=== PATIENT | female | born 2000 | race Caucasian/White ===

== ENCOUNTER 2023-12-31 15:19 | Emergency (ER) | payer OTHER, BC, SELFPAY ==
--- NOTE | ~2023-12-31 | CT_ITS ---
EXAMINATION: CT HEAD WITHOUT CONTRAST CLINICAL INFORMATION: Hit in head with field hockey-stick. COMPARISON: None. TECHNIQUE: Contiguous axial imaging was performed from the skullbase to vertex without intravenous administration of contrast. This CT examination was performed using dose optimization techniques as appropriate, variously including the following: *Automated exposure control *Adjustment of mA and/or kV according to patient size (this includes techniques or standardized protocols for targeted exams where dose is matched to indication/reason for exam; i.e. extremities or head) *Use of iterative reconstruction technique DLP: 577 mGy-cm. FINDINGS: There is no evidence of acute intracranial hemorrhage or territorial infarction. No abnormal mass effect or midline shift is seen. Monge to white matter differentiation is well preserved. No extra-axial fluid collections are identified. The ventricles are normal in size. There is no abnormal attenuation within the brain parenchyma. The osseous structures and soft tissues are normal. The mastoid air cells and visualized portions of the paranasal sinuses are well aerated. CT/CT head/brain wo IV con IMPRESSION: No acute intracranial pathology. Electronically signed by: López Driscoll MD 12/31/2023 04:52 PM EDT
[2023-12-31 15:34] VITALS: BP 109/68; BP 110/72; PULSE 61; PULSE 86; RESP 16; TEMP 37.2; O2SAT 99; BMI 27.4
--- NOTE | 2023-12-31 15:49 | ED.HEATRA ---
HPI - Head Injury General Chief complaint: Trauma Stated complaint: FEILD HOCKEY STICK TO FACE PER EMS Time Seen by Provider: 12/31/23 15:28 Source: patient, family, EMS, RN notes reviewed and old records reviewed Mode of arrival: EMS History of Present Illness ED Provider: Catrina Price PA-C HPI Narrative: 23-year-old female with no significant past medical history presenting to ED via EMS complaining of facial laceration and head injury s/p being struck with field hockey stick [employer]. [facility] stick, denies LOC, nausea/vomiting. Denies falling all the way to ground. Admits initially groggy with photosensitivity which is improving. Denies vision change/loss, nausea/vomiting, neck/back pain, numbness, tingling, weakness. Vaccinations up-to-date Related Data Allergies Allergy/AdvReac Type Severity Reaction Status Date / Time No Known Allergies Allergy Verified 12/31/23 15:36 Review of Systems Review of Systems: Yes all other systems are reviewed and are negative Constitutional: Constitutional: Reports as per HPI Neurologic: Denies Abnormal speech present [facility] Past Medical History Attestation statement: The following information was validated with the patient. Source: old records reviewed Social History Social History Advance Directives: No Advance Directives Information Provided: No Do you have a plan to hurt others: No Plan Physical Exam Vital Signs: Vital Signs: Last Vital Signs Temp 97.6 F 12/31/23 17:11 Pulse 52 12/31/23 17:11 Resp 16 12/31/23 17:11 BP 111/69 12/31/23 17:11 Pulse Ox 98 12/31/23 17:11 O2 Del Method Room Air 12/31/23 17:11 BMI result Body Mass Index 27.4 Const: General: cooperative, healthy appearing and no acute distress Orientation/consciousness: patient oriented x3 Limitations: no limitations HEENT: Other: + 2 cm laceration noted to right forehead/eyebrow. Bleeding controlled. EOMs intact without entrapment or pain. No palpable step-off Head: Yes normal to inspection and Yes atraumatic Ears: hearing grossly normal bilaterally General nose exam: Normal external nose present Face and sinus: Yes normal facial exam Throat: Yes posterior oropharynx normal and Yes uvula midline Eyes: General: appearance normal, both eyes and all related structures Pupils: Equal, round and reactive pupils present EOM: EOMs intact bilaterally Neck: Neck: Yes normal visual inspection and Yes no meningeal signs Resp: Effort & Inspection: normal respiratory effort and no respiratory distress Cardio: Rate: regular rate GI: Inspection: Yes normal to inspection Palpation (GI): Soft to palpation, nontender, no guarding and not rigid Back/Spine/Pelvis: Other: No midline cervical/thoracic/lumbar spinous tenderness/step-off or deformity Skin: Rashes: no rashes Neuro: General: patient oriented x3, tone normal, moves all extremities, no meningeal signs, no focal motor deficits and CN's II-XI intact bilaterally Cranial nerves: Yes CN's II-XII intact bilaterally, Yes Equal, round and reactive pupils present and Yes Bilaterally intact EOM present Cognition (Neuro): normal cognition Speech: No Abnormal speech present Motor exam (neuro): 5/5 motor strength present throughout and no tremor noted Extrem: General: Yes normal to inspection Course Course Course Narrative: CT head/brain wo IV con IMPRESSION: No acute intracranial pathology. Results discussed with patient including worrisome signs and symptoms and strict return precautions, and when to return to the emergency department. They verbalized understanding and feel safe for discharge at this time. Medications Administered Discontinued Medications Generic Name Dose Route Start Last Admin Trade Name Freq PRN Reason Stop Dose Admin Acetaminophen 975 mg 12/31/23 15:46 12/31/23 16:09 Acetaminophen 325 Mg Tablet PO 12/31/23 15:47 975 mg ONCE ONE Administration Lidocaine HCl 5 ml 12/31/23 15:46 12/31/23 15:55 Lidocaine Hcl 1 % Mpf 5 Ml Vial INFILTRATI 12/31/23 15:47 5 ml ONCE ONE Administration Medical Decision Making Medical Decision Making [facility] Narrative: 23-year-old female with no significant past medical history presenting to ED via EMS complaining of facial laceration and head injury s/p being struck with field hockey stick [employer]. On exam vital signs stable, NAD, nontoxic appearing, A&O x3, no midline spinous tenderness, no focal neuro deficits. Physical exam as noted above with facial/eyebrow laceration. No palpable step-off. Concern for ICH vs fracture vs contusion vs concussion and laceration. Plan: Head CT, repair wound Please refer to course for remaining clinical decision making, interpretation of labs/imaging results, and discussions with consultants and/or family members. Differential Diagnosis Differential Diagnoses: The differential diagnosis associated with the presentation includes As above Admission/Observation Consideration of admission/observation: Escalation of care including admission/observation considered Lab Data MDM Lab Attestation statement: I reviewed the patient's lab results. Independent Interpretation I performed an independent interpretation of an: CT Scan Radiology Impression Discussion of test interpretation with radiology: I have reviewed the radiologist's reading. Independent Historian Clinical information obtained from an independent historian. History obtained from or confirmed by: Parent and EMS External Record Review External record reviewed: Inpatient record, Office record, Outpatient record, Prior outpatient labs, Prior outpatient radiology, Primary care record and Outside ED record Tests considered The following testing was considered but not selected: As above Prescription Management I considered prescription management with: Pain Medication Procedures Laceration Laceration 1: Site: face Description: linear and irregular Depth: simple, single layer Local Anesthetic: lidocaine 1% Amount of anesthesia used (mL): 3 Pre-repair: wound explored Skin layer closed with: nylon Size (cm): 6-0 Number of sutures: 5 Technique: simple, interrupted Discharge Plan Discharge Clinical Impression: Facial laceration, Head injury Patient Disposition: Home, Self-Care Additional Instructions: Your head CT is unremarkable. You likely have a concussion. Practice brain rest. Avoid bright lights, screen time Is normal to have some headaches and nausea. If this is persistent or worsening, persistent vomiting, weakness return to the ED Your wounds were repaired today in the emergency department. Keep dry and clean. You need to return to any emergency department, urgent care, or your PCPs office in 5 days for suture removal Apply bacitracin and or Neosporin daily Once sutures are removed apply anti scar cream like Mederma If area begins look infected, is red, there is drainage, streaking, or you have fever please return to the emergency department Referrals: Physician,Unknown J [Primary Care Provider] - 5 days (For suture removal) Interventions: ED Discharge Assessment Last Done: 12/31/23 17:11 Discharge Date/Time: 12/31/23 17:11 Print Language: Urdu
[2023-12-31] MEDS: Lidocaine HCl 1 % MPF 5 ML VIAL INFILTRATI (15:55)
[2023-12-31 16:00] VITALS: BP 111/69; PULSE 52; RESP 16; TEMP 36.4; O2SAT 98
[2023-12-31] MEDS: Acetaminophen 325 MG TABLET 975 MG PO (16:09)
[2023-12-31 17:11] VITALS: BP 111/69; PULSE 52; RESP 16; TEMP 36.4; O2SAT 98
== END 2023-12-31 17:11 | disposition home or self-care (01) ==
PROVIDERS: Emergency Provider Emergency Medicine Emergency Medical Services
DX: S01.81XA Laceration without foreign body of other part of head, initial encounter (principal); W21.211A Struck by field hockey stick, initial encounter; Y93.65 Activity, lacrosse and field hockey; Y92.39 Other specified sports and athletic area as the place of occurrence of the external cause; Y99.9 Unspecified external cause status
CPT/HCPCS: 12011; 70450; 99283; 99284